=== PATIENT | male | born 1970 | race Caucasian/White ===

== ENCOUNTER 2022-01-01 20:50 | Emergency (ER) | payer MEDICAID, OTHER ==
[~2022-01-01] VITALS: Ht 172.7 cm; Wt 86.4 kg
[2022-01-01 21:07] VITALS: BP 99/70
[2022-01-01 21:39] LABS: BASOPHILS % (AUTO) 0.6 % (0-1); EOSINOPHILS # (AUTO) 0.3 X10'3 (0-0.9); EOSINOPHILS % (AUTO) 4.9 % (0-6); HEMATOCRIT 41.8 % (42.0-52.0); LYMPHOCYTES % (AUTO) 34.4 % (21-51); MEAN CORPUSCULAR HEMOGLOBIN 29.5 PG (27.0-31.0); MEAN CORPUSCULAR HGB CONC 33.3 g/dL (33.0-36.5); MEAN CORPUSCULAR VOLUME 88.4 FL (78-98); MEAN PLATELET VOLUME 7.7 FL (7.4-10.4); MONOCYTES # (AUTO) 0.4 X10'3 (0-0.9); MONOCYTES % (AUTO) 6.4 % (2-12); NEUTROPHILS # (AUTO) 3.2 X10'3 (1.8-7.7); NEUTROPHILS % (AUTO) 53.7 % (42-75); PLATELET COUNT 258 X10'3 (140-440); RED BLOOD COUNT 4.73 X10'6 (4.70-6.10); RED CELL DISTRIBUTION WIDTH 13.9 % (11.5-14.5); WHITE BLOOD COUNT 5.9 X10'3 (4.5-11.0)
[2022-01-01 21:58] LABS: ALANINE AMINOTRANSFERASE 22 U/L (12-78); ALBUMIN 3.5 G/DL (3.4-5.0); ALBUMIN/GLOBULIN RATIO 0.9 (1.1-1.5); ALKALINE PHOSPHATASE 98 IU/L (46-116); ANION GAP 12 (8-16); ASPARTATE AMINO TRANSFERASE 13 U/L (10-37); BILIRUBIN,TOTAL 0.3 MG/DL (0.1-1.0); BLOOD UREA NITROGEN 9 MG/DL (7-18); BUN/CREATININE RATIO 9.6 (5.4-32.0); CALCIUM 8.5 MG/DL (8.5-10.1); CHLORIDE 109 MMOL/L (99-107); CREATININE 0.94 MG/DL (0.60-1.10); GLUCOSE 105 MG/DL (70-104); POTASSIUM 3.5 MMOL/L (3.5-5.1); SODIUM 144 MMOL/L (135-145); TOTAL CARBON DIOXIDE 23.5 MMOL/L (24-32); TOTAL PROTEIN 7.2 G/DL (6.4-8.2); eGFR 84 ML/MIN
[2022-01-01 22:05] LABS: ETHANOL 0.091 GM/DL (0.0-0.010)
[2022-01-01] MEDS ORDERED: NO HOME MEDS (23:43)
[2022-01-02 02:22] LABS: CLARITY,URINE CLEAR (Clear); COLOR,URINE YELLOW (Yellow); GLUCOSE, URINE NEGATIVE (Neg); KETONES,URINE NEGATIVE (Neg); LEUKOCYTE ESTERASE ,URINE NEGATIVE (Neg); NITRITES, URINE NEGATIVE (Neg); OCCULT BLOOD,URINE NEGATIVE (Neg); PROTEIN,URINE NEGATIVE (Neg); UROBILINOGEN,URINE 0.2 E.U/dL (0.2-1.0)
[2022-01-02 02:30] LABS: UA COLLECTION TYPE CLN CATCH MIDSTREAM
[2022-01-02 02:47] LABS: URINE AMPHETAMINE SCREEN NEGATIVE (Neg); URINE BARBITUATE SCREEN NEGATIVE (Neg); URINE BENZODIAZEPINES SCREEN NEGATIVE (Neg); URINE CANNABINOID SCREEN NEGATIVE (Neg); URINE COCAINE SCREEN NEGATIVE (Neg); URINE METHADONE SCREEN NEGATIVE (Neg); URINE OPIATE SCREEN NEGATIVE (Neg); URINE PHENCYCLIDINE SCREEN NEGATIVE (Neg)
--- NOTE | 2022-01-02 06:58 | NUR ---
PT LAYING ON L SIDE RESTING, EFFORTLESS RESPIRATIONS OBSERVED
--- NOTE | 2022-01-02 08:06 | NUR ---
PACKET FAXED TO [facility]
--- NOTE | 2022-01-02 10:15 | NUR ---
Pt brought to [facility] from main ER. Pt in bed #20. His property was inventoried in main ER. Property placed in locker Rm #[id number]. Property sheet in the chart. Placed ID band on the patient before he requested to "go to sleep." Pt on his right side appears to be sleeping. RR even and unlabored.
--- NOTE | 2022-01-02 11:00 | NUR ---
Pt continues to sleep.
--- NOTE | 2022-01-02 14:05 | NUR ---
Up to BR then back to bed. Pt's eyes closed. Appears to be resting comfortably. RR even and unlabored.
--- NOTE | 2022-01-02 16:37 | NUR ---
Pt has been discharged. His taxi will be here between [id number]. They will call main ER for hot die picker. Pt has homeless meals. He will be going to [facility] where his Aunt lives in [facility]. Pt has his personal clothes on his shoes are at the desk.
--- NOTE | 2022-01-02 17:37 | NUR ---
Pt resting. He appears to be sleeping. He is waiting for a Taxi.
--- NOTE | 2022-01-02 18:29 | NUR ---
Pt discharged. [facility] here to picker packer. All belongings signed out and given to pt. Pt to return to Aunt's house.
== END 2022-01-02 18:31 | disposition home or self-care (01) ==
LOC: ER 20:51
DX: T14.91XA Suicide attempt, initial encounter (principal); Z20.822 Contact with and (suspected) exposure to COVID-19; F32.A Depression, unspecified; F15.90 Other stimulant use, unspecified, uncomplicated; Z59.00 Homelessness unspecified; X78.0XXA Intentional self-harm by sharp glass, initial encounter; Y93.89 Activity, other specified; Y92.89 Other specified places as the place of occurrence of the external cause; Y99.8 Other external cause status
CPT/HCPCS: 36415; 80053; 80305; 80320; 81003; 84443; 85025; 87811; 99285

== ENCOUNTER 2022-01-05 20:10 | Emergency (ER) | payer MEDICAID ==
[~2022-01-05] VITALS: Ht 180.3 cm; Wt 90.9 kg
[~2022-01-05 20:10] MED LIST: NO HOME MEDS
[2022-01-05 20:29] VITALS: BP 119/74
[2022-01-05] MEDS ORDERED: NO HOME MEDS (20:48)
[2022-01-05 21:13] LABS: BASOPHILS % (AUTO) 0.4 % (0-1); EOSINOPHILS # (AUTO) 0.1 X10'3 (0-0.9); EOSINOPHILS % (AUTO) 2.6 % (0-6); HEMATOCRIT 37.4 % (42.0-52.0); HEMOGLOBIN 12.8 g/dl (14.0-17.9); LYMPHOCYTES # (AUTO) 1.7 X10'3 (1.1-4.8); LYMPHOCYTES % (AUTO) 28.8 % (21-51); MEAN CORPUSCULAR HEMOGLOBIN 30.4 PG (27.0-31.0); MEAN CORPUSCULAR HGB CONC 34.2 g/dL (33.0-36.5); MEAN CORPUSCULAR VOLUME 88.9 FL (78-98); MEAN PLATELET VOLUME 7.6 FL (7.4-10.4); MONOCYTES # (AUTO) 0.4 X10'3 (0-0.9); MONOCYTES % (AUTO) 6.5 % (2-12); NEUTROPHILS # (AUTO) 3.6 X10'3 (1.8-7.7); NEUTROPHILS % (AUTO) 61.7 % (42-75); PLATELET COUNT 205 X10'3 (140-440); RED BLOOD COUNT 4.21 X10'6 (4.70-6.10); RED CELL DISTRIBUTION WIDTH 14.3 % (11.5-14.5); WHITE BLOOD COUNT 5.8 X10'3 (4.5-11.0)
[2022-01-05 21:36] LABS: ALANINE AMINOTRANSFERASE 20 U/L (12-78); ALBUMIN 3.3 G/DL (3.4-5.0); ALBUMIN/GLOBULIN RATIO 1.1 (1.1-1.5); ALKALINE PHOSPHATASE 72 IU/L (46-116); ANION GAP 13 (8-16); ASPARTATE AMINO TRANSFERASE 18 U/L (10-37); BILIRUBIN,TOTAL 0.4 MG/DL (0.1-1.0); BLOOD UREA NITROGEN 12 MG/DL (7-18); BUN/CREATININE RATIO 17.6 (5.4-32.0); CALCIUM 8.2 MG/DL (8.5-10.1); CHLORIDE 109 MMOL/L (99-107); CREATININE 0.68 MG/DL (0.60-1.10); GLUCOSE 86 MG/DL (70-104); SODIUM 144 MMOL/L (135-145); TOTAL CARBON DIOXIDE 22.5 MMOL/L (24-32); TOTAL PROTEIN 6.4 G/DL (6.4-8.2); eGFR > 90 ML/MIN
--- NOTE | 2022-01-06 00:30 | NUR ---
PT MOVED FROM BED 7 TO BED 12, REPORT RECIEVED FROM CIPRIANO TANNER
--- NOTE | 2022-01-06 00:47 | NUR ---
PT RESTING ON BACK, APPEARS TO BE SLEEPING WITH NO SIGNS OF DISTRESS, EVEN UNLABORED RESPIRATIONS
--- NOTE | 2022-01-06 00:48 | NUR ---
PT UNABLE TO URINATE AT THIS TIME
--- NOTE | 2022-01-06 04:01 | NUR ---
PT RESTING ON BACK WITH NO SIGN OF DISTRESS
--- NOTE | 2022-01-06 04:21 | NUR ---
PATIENT'S PACKET WAS SENT TO [facility].
--- NOTE | 2022-01-06 06:50 | NUR ---
PT IS ON HIS BED AWAKE. HE APPEARS CALM.
--- NOTE | 2022-01-06 08:50 | NUR ---
PT APPEARS TO BE SLEEPING. RR EVEN AND UNLABORED.
--- NOTE | 2022-01-06 11:35 | NUR ---
PT IS SLEEPING. RR EVEN AND UNLABORED.
--- NOTE | 2022-01-06 12:23 | NUR ---
Report received from CIPRIANO Calvert. [facility] worker speaking with pt. at this time.
--- NOTE | 2022-01-06 13:23 | NUR ---
Pt. lying in bed, noted rise and fall of chest.
--- NOTE | 2022-01-06 14:00 | NUR ---
Pt. discharged at 1350. Pt. left ambulating, escorted by security. Pt. would not sign discharge paperwork or review discharge paperwork with nurse. Pt. left in own clothes and belongings returned to him. [facility] arranged an appt with an intake interview for the pt. to receive help with substance abuse.
== END 2022-01-06 15:04 | disposition home or self-care (01) ==
LOC: ER 20:11
DX: F32.9 Major depressive disorder, single episode, unspecified (principal); R45.851 Suicidal ideations; Z20.822 Contact with and (suspected) exposure to COVID-19; Z59.00 Homelessness unspecified; Z79.899 Other long term (current) drug therapy
CPT/HCPCS: 36415; 80053; 80320; 85025; 87811; 99285